=== PATIENT | female | born 1975 | race Caucasian/White ===

== ENCOUNTER 2018-02-07 18:43 | Inpatient (IN) | payer BC, OTHER ==
[~2018-02-07] VITALS: Ht 170.2 cm; Wt 63.5 kg
--- NOTE | 2018-02-07 20:45 | NUR ---
PRE-ADMISSION NOTE: Pre-assessment done for 43 year old female in intake. Patient presented for Alcohol withdrawal. Patient reports, " Last time I drunk 2 1/2 White Wine bottles and 50 ml of Tequila at 1700". Patient reports NKA, and denies Seizures History. Patient denies history withdrawal induced cardiac complications r/t alcohol withdrawal . Patient is alert and oriented x4, with steady gait, and with clear soft speech, smelling of alcohol. Patient appears sad, worried, with anxious mood and flat affect. Patient noted disheveled, unshaven, unkempt, with uncombed hair. Patient is intoxicated. Patient does not experienced withdrawal symptoms. VS: T:97.4, BP:112/75, HR:79, RA O2SAT: 98%, RR: 18. Pain level:"0/10". Respirations unlabored and even. Patient denies SOB and chest pain. Patient educated on admission process. Will continue the admission when patient coming on the unit.
[2018-02-07 21:06] VITALS: BP 112/75
--- NOTE | 2018-02-07 21:06 | NUR ---
ADMISSION NOTE: The patient is a 43 year old female admitted to [facility] on 02/07/2018 at 2106 for medically supervised from Alcohol withdrawal. Pre-assessment completed in intake. Patient is alert and oriented x4, with steady gait, and with clear soft speech, smelling of alcohol. The patient is cooperative and verbally appropriate. Patient appears sad, worried, with anxious mood and flat affect. Patient noted disheveled, , unkempt, with uncombed hair. Patient is intoxicated. Patient does not experienced withdrawal symptoms. Patient reports NKA, Regular diet, is on Full Code, Fall and Seizures Precautions. Patient denies a history of seizures, and history of suicidal ideations. Patient denies history withdrawal induced cardiac complications r/t alcohol withdrawal.Patient is poor historian. VS: T:97.4, BP:112/75, HR:79, RA O2SAT: 98%, RR: 18. Pain level:"0/10". Ht: 67 in, Wt:140 lbs y standing scale. Patient provided Blood labs, UDS, and tests at this time. Patient denies Past Medical History. PCP: Dari Melgoza MD.. Psychiatrist : Elina Wei MD . Patient reports the following substance use: 1. White Wine PO: Every day since 1991 . "First time started drinking 17 year old in college with my friends. Last year I using Alcohol (White Wine) PO every day: 3 bottles (750ml each). Last time I used 2 and 1/2 bottles of White Wine on 02/07/2018 at 1700". 2. Tequila PO occasionally during last year. Last time I used 50 ml of Tequila on 02/07/2018 at 1700". The patient reports, "I am 3-rd time in detox now: first treatment was with private outcomes specialist, then I was in [facility] : 20 days in 2016" . Then I was sober. Patient reports, "My longest period of sobriety was 1year: [id number]. Last year I Am using alcohol every day". The patient reports, "I was relapsed for not feelings pains, started shaking, and body aches. I relapsed because I was craving, and scared for my withdrawal symptoms. If I am not using alcohol I am experienced agitation,depression,irritability,nervousness,headache,tremors,palpitations,sweating,tremors , stomach cramps, nausea, vomiting, generalized body aches, myalgia, restlessness, and fatigue". The patient reports, " I get my endorphins from [employer] and surfing and running marathons. I want to change my life by receiving endorphins from natural highs vs alcohol". Patient would like to continue to residential treatment after detox. The patient reports, "I have been never smoking ". Writing smoking cessation education provided. Patient verbalized understanding. Upon initial assessment, patient respirations are even and unlabored. She denies SOB and chest pain. Lungs Sounds are clear bilaterally. Bowel Sounds active in all four quadrants, abdomen is soft and non-tender. PERRLA. Brisk capillary refill, extrusion former equal and strong. Skin search done: Skin is intake, dry and warm to touch. The patient poor historian, brought Home Medications. Reconciliation done. The patient oriented to her Room, Nurse Call Light, and Serenity Floor. Encourage to attend group activities. Admission orders noted and cared out. Patient oriented to unit and educated about plan of care including detox, such us group activities therapy, individual therapy, and discharge planning. Encouraged patient to verbalizing feelings. Encouraged to fluids intake as tolerated. All needs met. Safety measures: Call light within reach, bed locked in lowest position, padded bed rails up x2. Endorsed by outgoing day shift nurse. Will continue to monitor closely. Addendum: 02/08/18 at 0702 by KATIA JEREZ RN 1. White Wine PO: Starting drinking since 1991 .
[2018-02-07] MEDS ORDERED: ONDANSETRON 4 MG/2 ML VIAL IM PRN (21:30)
[2018-02-07] MEDS ORDERED: LOPERAMIDE HCL 2 MG CAPSULE PO PRN ×2 (21:30)
[2018-02-07] MEDS ORDERED: DIAZEPAM 5 MG TABLET PO PRN (21:30)
[2018-02-07] MEDS ORDERED: THIAMINE HCL 200 MG/2 ML VIAL IM ONE (21:30)
[2018-02-07] MEDS ORDERED: DICYCLOMINE HCL 20 MG TABLET PO PRN (21:30)
[2018-02-07] MEDS ORDERED: MAG HYDROX/AL HYDROX/SIMETH 30 ML LIQUID UDC PO PRN (21:30)
[2018-02-07] MEDS ORDERED: LORAZEPAM 2 MG/1 ML VIAL IM PRN (21:30)
[2018-02-07] MEDS ORDERED: diphenhydrAMINE 50 MG CAPSULE PO PRN (21:30)
[2018-02-07] MEDS ORDERED: DIAZEPAM 10 MG TABLET PO PRN (21:30)
[2018-02-07] MEDS ORDERED: MIRALAX 17 GM POWD.PACK PO PRN (21:30)
[2018-02-07] MEDS ORDERED: MAGNESIUM HYDROXIDE 30 ML LIQUID UDC PO PRN (21:30)
[2018-02-07 21:42] LABS: BASOPHILS # (AUTO) 0.1 K/uL (0.0-8.0); BASOPHILS % (AUTO) 1.4 % (0.0-2.0); EOSINOPHILS # (AUTO) 0.1 K/uL (0.0-0.7); EOSINOPHILS % (AUTO) 1.2 % (0.0-7.0); HEMATOCRIT 41.1 % (31.2-41.9); HEMOGLOBIN 14.1 g/dL (10.9-14.3); LYMPHOCYTES # (AUTO) 2.1 K/uL (20.0-40.0); LYMPHOCYTES % (AUTO) 32.5 % (20.5-51.5); MEAN CORPUSCULAR HEMOGLOBIN 35.5 uug (24.7-32.8); MEAN CORPUSCULAR HGB CONC 34 g/dL (32.3-35.6); MEAN CORPUSCULAR VOLUME 103.2 fL (75.5-95.3); MONOCYTES # (AUTO) 0.3 K/uL (2.0-10.0); MONOCYTES % (AUTO) 4.1 % (0.0-11.0); NEUTROPHILS % (AUTO) 60.8 % (38.5-71.5); PLATELET COUNT (AUTO) 285 K/uL (179-408); RED BLOOD CELL COUNT(AUTO) 3.98 MIL/uL (3.63-4.92); WHITE BLOOD COUNT (AUTO) 6.5 K/uL (3.8-11.8)
[2018-02-07 21:49] LABS: *URINE HCG, QUAL NEGATIVE (NEGATIVE)
[2018-02-07 21:59] LABS: *AMPHETAMINE, URINE NEGATIVE (NEGATIVE); *BARBITURATE, URINE NEGATIVE (NEGATIVE); *CANNABINOID, URINE NEGATIVE (NEGATIVE); *COCCAINE, URINE NEGATIVE (NEGATIVE); *OPIATE, URINE NEGATIVE (NEGATIVE); *PHENCYCLIDINE SCREEN,URINE NEGATIVE (NEGATIVE)
[2018-02-07 22:03] LABS: BILIRUBIN,TOTAL 0.6 mg/dL (0.2-1.0); CREATININE 0.8 mg/dL (0.6-1.3); MAGNESIUM 1.9 mg/dL (1.8-2.4); POTASSIUM 4.1 mmol/L (3.5-5.1); TOTAL PROTEIN, SERUM 7.8 g/dL (6.4-8.2)
[2018-02-07 22:23] LABS: THYROID STIMULATING HORMONE 1.36 mIU/mL (0.358-3.740)
[2018-02-07] MEDS ORDERED: ONDA4TAB11 PO (23:05)
[2018-02-07] MEDS ORDERED: GABA600T2 PO (23:05)
[2018-02-07] MEDS ORDERED: RANI150T43 PO (23:08)
[2018-02-07] MEDS ORDERED: OMEP20TA5 PO (23:08)
[2018-02-07] MEDS: DIAZEPAM 10 MG TABLET PO PRN (23:18)
--- NOTE | 2018-02-07 23:18 | NUR ---
PRN VALIUM 10 MG PO AND PRN BENADRYL 50 MG PO ADMINISTRATION. PRN Valium 10 mg PO administrated for CIWA=12 at 2318, PRN Benadryl administrated for insomnia at 2318. Patient tolerated well. Encouraged to intake fluids as tolerated. All needs met. Safety measures: Call light within reach, bed locked in lowest position, padded bed rails up x2. Will continue to monitor closely.
[2018-02-07] MEDS ORDERED: DOXY100C2 PO (23:32)
[2018-02-07] MEDS ORDERED: FLUO40CA49 PO (23:32)
[2018-02-07] MEDS ORDERED: DIME25TA2 PO (23:32)
[2018-02-07] MEDS ORDERED: AMOX250C PO (23:32)
[2018-02-07] MEDS ORDERED: NITR50CA PO (23:32)
[2018-02-07] MEDS ORDERED: [UNRECOGNIZED DRUG - OTHER] (23:32)
[2018-02-07] MEDS ORDERED: TOPI50TA24 PO (23:32)
[2018-02-07] MEDS ORDERED: NALT50TA PO (23:32)
[2018-02-07] MEDS ORDERED: LEVO25TA2 PO (23:32)
[2018-02-08] VITALS: BP 113/67
--- NOTE | 2018-02-08 | NUR ---
CIWA ASSESSMENT CIWA=12 at 0000. Patient experienced moderate withdrawal symptoms such as anxiety, agitation, irritability, nervousness, sweating, bilateral tremors, and restlessness. PRN Valium 10 mg administrated as ordered for CIWA=12. Safe and calm environment provided. Encouraged to intake fluids as tolerated. All needs met. Safety measures: Call light within reach, bed locked in lowest position, padded bed rails up x2. Will continue to monitor closely.
--- NOTE | 2018-02-08 00:18 | NUR ---
PRN RE-ASSESSMENT The patient sleeping. Respirations are even and unlabored. RR:16. PRN Valium 10 mg PO administrated for CIWA=12 at 2318, PRN Benadryl administrated for insomnia at 2318 were effective. Safe and calm environment provided. Encouraged to intake fluids as tolerated. All needs met. Safety measures: Call light within reach, bed locked in lowest position, padded bed rails up x2. Will continue to monitor closely.
[2018-02-08] MEDS ORDERED: NEOM28.38 TP (02:53)
[2018-02-08] MEDS ORDERED: ESZO3TAB27 PO (02:53)
[2018-02-08] MEDS ORDERED: NAPR220T66 PO (02:53)
[2018-02-08] MEDS ORDERED: BISA10SU61 RC (02:53)
[2018-02-08 04:00] VITALS: BP 105/77
--- NOTE | 2018-02-08 04:00 | NUR ---
CIWA ASSESSMENT CIWA=14at 0400. Patient c/o shaking, increased anxiety, agitation, irritability, nervousness, sweating. Patient noted with bilateral tremors, flashed face, and restlessness. PRN Valium 10 mg PO for CIWA=14 will be administrated as ordered. Safe and calm environment provided. All needs met. Safety measures: Call light within reach, bed locked in lowest position, padded bed rails up x2. Will continue to monitor closely.
[2018-02-08] MEDS: DIAZEPAM 10 MG TABLET PO PRN (04:10)
--- NOTE | 2018-02-08 04:10 | NUR ---
PRN VALIUM 10 MG PO ADMINISTRATION. PRN Valium 10 mg PO administrated for CIWA=14 at 0410. Patient tolerated well. Encouraged to intake fluids as tolerated. Safe and calm environment provided. Encouraged to intake fluids as tolerated. All needs met. Safety measures: Call light within reach, bed locked in lowest position, padded bed rails up x2. Will continue to monitor closely.
--- NOTE | 2018-02-08 05:10 | NUR ---
PRN RE-ASSESSMENT The patient sleeping. Respirations are even and unlabored. RR:16. PRN Valium 10 mg PO administrated for CIWA=14 at 0410 was effective. Safe and calm environment provided. Encouraged to intake fluids as tolerated. All needs met. Safety measures: Call light within reach, bed locked in lowest position, padded bed rails up x2. Will continue to monitor closely.
--- NOTE | 2018-02-08 07:12 | NUR ---
END OF SHIFT NOTE: The patient is a 43 year old female admitted to [facility] on 02/07/2018 at 2106 for medically supervised from Alcohol withdrawal. Patient is alert and oriented x4, with steady gait, and with clear soft speech, smelling of alcohol. The patient is cooperative and verbally appropriate. Patient appears sad, worried, with anxious mood and flat affect. Patient noted disheveled, , unkempt, with uncombed hair. Patient reports NKA, Regular diet, is on Full Code, Fall and Seizures Precautions. Patient denies a history of suicidal ideations. Patient denies history withdrawal induced cardiac complications r/t alcohol withdrawal. Patient denies SI/HI. Patient denies PMH. CIWA=12 at 0000, CIWA= 14 at 0400. During my shift patient experienced mild withdrawal symptoms such as anxiety, agitation, irritability, nervousness, sweating, bilateral tremors, and restlessness. PRN Valium 10 mg PO administrated for CIWA=12 at 2318, PRN Benadryl administrated for insomnia at 2318, PRN Valium 10 mg PO administrated for CIWA=14 at 0410, and were effective. Patient remains compliant with treatment, medications, and diet regimen. Patient slept for 6 hours, intake 1,582 ml, output: voided x3. Safe and calm environment provided. Encouraged to intake fluids as tolerated. All needs met. Safety measures: Call light within reach, bed locked in lowest position, padded bed rails up x2. Endorsed to day shift nurse.
[2018-02-08] MEDS: HYDROXYZINE PAMOATE 25 MG CAPSULE PO PRN (07:42)
[2018-02-08] MEDS: ONDANSETRON ODT 4 MG TAB.RAPDIS SL PRN ×2 (07:42→14:20)
[2018-02-08] MEDS: CLONIDINE HCL 0.1 MG TABLET PO PRN (07:42)
--- NOTE | 2018-02-08 07:42 | NUR ---
START OF SHIFT & PRN Zofran 4mg SL, Clonidine 0.1mg PO, Vistaril 25mg PO. Endorse rcvd from ongoing nurse, client in the room, she is a/o to name, place and situation, client presents with depressed mood, flat affect, flushed face skin, clammy skin, and difficulty concentrating. Client reports nausea, stomach cramps, anxiety, agitation, fatigue, and restless legs. Above medications administered for nausea, agitation and anxiety. Last CIWA 14 @ 0400. PRN Valium 10mg x 2 @ 2318 & 0410, Benadryl 50mg for inability to sleep, client slept 4hrs. Seizure precautions in place. Encourage client to attend group therapy to learn skills to maintain sober. Call light within reach.
--- NOTE | 2018-02-08 08:12 | NUR ---
Reassess PRN Zofran 4mg SL, client reports slight relief from nausea, no emesis. Saltine crackers and maria elena tenisha. Call light within reach.
[2018-02-08] MEDS: DIAZEPAM 10 MG TABLET PO SCH ×4 (08:25→20:06)
[2018-02-08] MEDS: MULTIVITAMINS,THERAPEUTIC TABLET PO SCH (08:25)
[2018-02-08] MEDS: THIAMINE HCL 100 MG TABLET PO SCH (08:25)
[2018-02-08] MEDS: FOLIC ACID 1 MG TABLET PO SCH (08:25)
[2018-02-08 08:33] VITALS: BP 112/80
--- NOTE | 2018-02-08 08:42 | NUR ---
Reassess PRN Clonidine 0.1mg, Vistaril 25mg, client reports slight relief from anxiety, she appears less agitated. Call light within reach.
[2018-02-08] MEDS ORDERED: TUBERCULIN,PURIF.PROT.DERIV. 5 TU/0.1 ML TEST ID ONE (09:00)
[2018-02-08] MEDS ORDERED: 5 DAY TAPER VALIUM-SERENITY PROTOCOL PO PRN (09:00)
[2018-02-08 12:50] VITALS: BP 122/75
[2018-02-08] MEDS: ACETAMINOPHEN 325 MG TABLET PO PRN (12:52)
[2018-02-08] MEDS: IBUPROFEN 600 MG TABLET PO PRN (12:52)
--- NOTE | 2018-02-08 12:52 | NUR ---
CIWA 23 & PRN Tylenol 650mg PO, Motrin 600mg PO for ZAVALA 8/10. Client continues to present with gross tremors, anxiety, restlessness, pins and needle feeling in both legs, ZAVALA 8/10, anhedonia, difficulty concentrating, malaise, fatigue, chills, hot flashes, flushed face, sweats, agitation, nausea, poor appetite, difficulty concentrating. Scheduled Valium 10mg PO. Offered chicken soup, saltines, and maria elena tenisha. Call light within reach.
[2018-02-08] MEDS: TOPIRAMATE 25 MG TABLET PO SCH ×2 (13:12→20:06)
[2018-02-08] MEDS: FLUOXETINE HCL 20 MG CAPSULE PO SCH (13:12)
--- NOTE | 2018-02-08 13:41 | NUR ---
Therapist prompted client to attend twice daily group therapy sessions.
--- NOTE | 2018-02-08 13:52 | NUR ---
Reassess PRN Tylenol 650mg, Motrin 600mg, client reports relief from ZAVALA 2/10, but tolerable.
[2018-02-08] MEDS: LEVOTHYROXINE SODIUM 25 MCG TABLET PO SCH (14:19)
[2018-02-08] MEDS: ZANTAC 150 MG PO SCH (14:19)
[2018-02-08] MEDS: GABAPENTIN 300 MG CAPSULE PO SCH ×2 (14:19→16:40)
--- NOTE | 2018-02-08 14:20 | NUR ---
PRN Zofran 4mg SL for nausea, no emesis. Call light within reach.
--- NOTE | 2018-02-08 14:50 | NUR ---
Reassess PRN Zofran 4mg SL, client reports slight relief from nausea, no emesis.
[2018-02-08 16:35] VITALS: BP 118/84
--- NOTE | 2018-02-08 16:40 | NUR ---
WA 18 Client continues to present with gross tremors, anxiety, restlessness, pins and needle feeling in both legs, anhedonia, difficulty concentrating, malaise, fatigue, chills, hot flashes, clammy skin, agitation, nausea, and poor appetite. Scheduled Valium 10mg PO, Gabapentin 300mg PO administered. Call light within reach.
--- NOTE | 2018-02-08 19:26 | NUR ---
END OF SHIFT Endorse client to incoming nurse, client is in room, she is a/o x 4. Client monitored closely during shift, continues on Valium taper as ordered. During shift client presented with nausea, anxiety, agitation, stomach cramps, difficulty concentrating, avoidant gaze, flushed face and fatigue. PRN medications aministered and noted per protocol. Last CIWA 18 @ 1635. Adequate PO fluid intake 2800mL, void x 5. Consumes 25-50% of meals. Call light within reach.
--- NOTE | 2018-02-08 19:27 | NUR ---
Start of shift note Received report from day shift nurse. Pt is a 43 yo female, A+Ox4, presenting to [facility] for medically supervised ETOH withdrawal. Pt noted with restlessness, agitation, and anxiety. Pt has HX of anxiety, and depression which will be monitored during shift. Pt is on 5 day Valium taper, tolerated well. Respirations even and unlabored. Will continue to monitor.
[2018-02-08 20:11] VITALS: BP 115/84
--- NOTE | 2018-02-08 20:11 | NUR ---
CIWA Assessment CIWA: 11. Pt noted with fine tremors, sweat on brow, anxiety, agitation, and itchiness. Respirations even and unlabored. Will continue to monitor.
[2018-02-08] MEDS: TRAZODONE 50 MG TABLET PO PRN (22:59)
--- NOTE | 2018-02-08 22:59 | NUR ---
PRN Trazodone Pt c/o inability to sleep and requested for PRN Trazodone. Medication given and tolerated well. Will reassess within 1 HR. Will continue to monitor.
--- NOTE | 2018-02-08 23:48 | NUR ---
PRN Trazodone Reassessment Medication effective. Pt is resting well in bed. No s/s of ASE noted at this time. Respirations even and unlabored. Will continue to monitor.
--- NOTE | 2018-02-09 00:16 | NUR ---
V/S refused and CIWA deferred for sleep. Respirations even and unlabored. Will continue to monitor.
--- NOTE | 2018-02-09 04:55 | NUR ---
V/S refused and CIWA deferred for sleep. Respirations even and unlabored. Will continue to monitor.
[2018-02-09 06:44] LABS: BILIRUBIN,TOTAL 1.2 mg/dL (0.2-1.0); CREATININE 0.9 mg/dL (0.6-1.3); POTASSIUM 4.1 mmol/L (3.5-5.1); TOTAL PROTEIN, SERUM 6.8 g/dL (6.4-8.2)
--- NOTE | 2018-02-09 07:00 | NUR ---
End of shift note Pt was continuously noted with restlessness, agitation, and anxiety. Pt remained in room for majority of shift except to get food from kitchen and to go smoke on smoking patio. Pt remained cooperative and compliant with all aspects of treatment. Pt was given PRN Toradol and Trazodone @2118. Pt continues on PRN medications, tolerated well. Pt slept for a total of 10 HRS. Last COWS: 8 and Last CIWA: 8 @2009. Respirations even and unlabored. Will endorse to day shift nurse.
[2018-02-09] MEDS: PANTOPRAZOLE SODIUM 40 MG TABLET.DR PO SCH (07:07)
[2018-02-09] MEDS: LEVOTHYROXINE SODIUM 25 MCG TABLET PO SCH (07:07)
--- NOTE | 2018-02-09 07:30 | NUR ---
Start of shift Last CIWA 11 at 1999. Pt on 5 day Valium taper. Pt presents with moderate anxiety, gross tremors, nausea, sensitivity to light, chills, sweats, anhedonia, dysphoria, and depressed mood .Pt slept 10 hours last night. Encouraged Pt to participate in group activities, socialize with others and identify positive coping skills to maintain sobriety. Seizure and Fall precautions and all safety measures in place. Side rails up x2. Call light functioning and within reach. All needs attended and met. Will continue to assess for withdrawal symptoms.
[2018-02-09 08:00] VITALS: BP 104/68
--- NOTE | 2018-02-09 08:00 | NUR ---
CIWA 18- Pt presents with flushed face, nausea, moderate anxiety, light sensitivity, gross tremors, chills, and sweats. Will administer PRN medication as order for withdrawal and continue Valium taper.
[2018-02-09 08:10] LABS: HEPATITIS B SURFACE AG Negative (Negative)
[2018-02-09] MEDS: MULTIVITAMINS,THERAPEUTIC TABLET PO SCH (08:25)
[2018-02-09] MEDS: THIAMINE HCL 100 MG TABLET PO SCH (08:25)
[2018-02-09] MEDS: GABAPENTIN 300 MG CAPSULE PO SCH ×3 (08:25→16:47)
[2018-02-09] MEDS: TOPIRAMATE 25 MG TABLET PO SCH ×2 (08:25→20:50)
[2018-02-09] MEDS: FOLIC ACID 1 MG TABLET PO SCH (08:25)
[2018-02-09] MEDS: HYDROXYZINE PAMOATE 25 MG CAPSULE PO PRN (08:25)
[2018-02-09] MEDS: ONDANSETRON ODT 4 MG TAB.RAPDIS SL PRN (08:25)
[2018-02-09] MEDS: FLUOXETINE HCL 20 MG CAPSULE PO SCH (08:26)
[2018-02-09] MEDS: DIAZEPAM 10 MG TABLET PO SCH ×3 (08:26→20:49)
--- NOTE | 2018-02-09 08:30 | NUR ---
PRN Zofran 4 mg sl for nausea, no emesis. PRN Vistaril 25 mg po for moderate anxiety
--- NOTE | 2018-02-09 09:30 | NUR ---
Reassess Zofran- Pt reports nausea improved but still remains slightly. Reassess Vistaril- Pt reports anxiety improved. Medication effective.
[2018-02-09] MEDS: ZANTAC 150 MG PO SCH (09:39)
[2018-02-09 12:00] VITALS: BP 128/84
--- NOTE | 2018-02-09 12:18 | NUR ---
WA 17- Withdrawal symptoms include, fatigue, flushed face, moderate anxiety, gross tremors, chills/sweats, nausea, light sensitivity, decreased appetite, depression, difficulty concentrating and generalized discomfort.
[2018-02-09] MEDS: CLONIDINE HCL 0.1 MG TABLET PO PRN ×2 (13:11→20:49)
--- NOTE | 2018-02-09 13:12 | NUR ---
PRN Clonidine 0.1mg po for moderate anxiety
--- NOTE | 2018-02-09 14:13 | NUR ---
Reassess Clonidine- Pt reports her anxiety has improved. Will continue to assess withdrawal symptoms and administer taper and PRN's as ordered.
[2018-02-09 16:00] VITALS: BP 107/80
--- NOTE | 2018-02-09 16:15 | NUR ---
WA 17- Withdrawal symptoms include moderate anxiety, gross tremors, chills/sweats, nausea, light sensitivity, fatigue, flushed face, poor appetite, depression, difficulty concentrating and generalized discomfort. Administer taper and PRN medications as ordered.
--- NOTE | 2018-02-09 18:39 | NUR ---
End of shift Last CIWA 17 at 1600. Pt on 5 day Valium taper. Withdrawal symptoms today include moderate anxiety, gross tremors, flushed face, fatigue, nausea, sensitivity to light, chills, sweats, anhedonia, dysphoria, and depressed mood . PRNs given today were Zofran, Clonidine and Vistaril. Pt was able to perform ADLs and shower this afternoon. Encouraged Pt to participate in group activities, socialize with others and identify positive coping skills to maintain sobriety. PO fluids 2572 ml, voids x 5, no BM. Seizure and Fall precautions and all safety measures in place. Side rails up x2. Call light functioning and within reach. All needs attended and met. Will continue to assess for withdrawal symptoms. Endorsed to PM shift.
--- NOTE | 2018-02-09 19:47 | NUR ---
START OF SHIFT NOTE Rcvd report form outgoing nurse. Pt is a 44 y/o female A/O to person, place, time, and purpose. Pt was admitted for medically supervised withdrawal from ETOH. Pt has been presenting w/ anxiety, sweats, tremors, nausea w/ no emesis, and depressed mood. Pt has been c/o agitation and chills. PRN Zofran, Vistaril, and Clonidine were given and noted effective by outgoing nurse. Last CIWA 17 @ 1600. Call light is within reach. Pt will continue to be monitored and needs met.
[2018-02-09 20:11] VITALS: BP 103/71
--- NOTE | 2018-02-09 20:14 | NUR ---
CIWA ASSESSMENT CIWA 17. Pt has been presenting w/ anxiety, sweats, tremors, nausea w/ no emesis, and depressed mood. Pt has been c/o agitation and chills.V/S:T:98.3, P:82, RR:16, SPO2:95, BP:103/71.
[2018-02-09] MEDS: diphenhydrAMINE 50 MG CAPSULE PO PRN (20:48)
--- NOTE | 2018-02-09 20:48 | NUR ---
PRN BENADRYL AND CLONIDINE ADMINISTRATION Benadryl 50mg and Clonidine 0.1mg given for anxiety and insomnia. CIWA 17. Will reassess pt in 1 hr.
--- NOTE | 2018-02-09 21:48 | NUR ---
PRN BENADRYL AND CLONIDINE REASSESSMENT Pt states relief from anxiety and feels they have the ability to fall asleep. Will continue to monitor pt.
--- NOTE | 2018-02-10 00:08 | NUR ---
CIWA DEFERRED. V/S REFUSED. Pt is in bed w/ her eyes closed. Pt's respirations are unlabored and even.
--- NOTE | 2018-02-10 04:06 | NUR ---
CIWA DEFERRED. V/S REFUSED Pt is in bed w/ her eyes closed. Pt's respirations are unlabored and even.
[2018-02-10] MEDS: LEVOTHYROXINE SODIUM 25 MCG TABLET PO SCH (06:45)
[2018-02-10] MEDS: PANTOPRAZOLE SODIUM 40 MG TABLET.DR PO SCH (06:45)
--- NOTE | 2018-02-10 07:07 | NUR ---
END OF SHIFT NOTE Endorsed pt to oncoming nurse. Pt is a 44 y/o female A/O to person, place, time, and purpose. Pt was admitted for medically supervised withdrawal from ETOH. Pt has been presenting w/ anxiety, sweats, tremors, nausea w/ no emesis, and depressed mood. Pt has been c/o agitation and chills. PRN Benadryl 50mg and Clonidine 0.1mg were given for sleep, anxiety, sweats, chills, and agitation, noted effective. Pts fluid intake was 1750ml and she slept for 8hrs. Last CIWA 17 @ 1999. Call light is within reach.
--- NOTE | 2018-02-10 07:50 | NUR ---
Start of shift Last CIWA 17 at 1999. Pt on 5 day Valium taper. Withdrawal symptoms today include moderate anxiety, gross tremors, flushed face, fatigue, nausea, sensitivity to light, chills, sweats, anhedonia, dysphoria, and depressed mood . Pt slept 8 hours last night. Encouraged Pt to participate in group activities, socialize with others and identify positive coping skills to maintain sobriety. Seizure and Fall precautions and all safety measures in place. Side rails up x2. Call light functioning and within reach. All needs attended and met. Will continue to assess for withdrawal symptoms.
[2018-02-10 08:00] VITALS: BP 98/61
--- NOTE | 2018-02-10 08:12 | NUR ---
[facility] 12-Withdrawal symptoms include moderate anxiety, bilateral hand tremors, flushed face, fatigue, sensitivity to light, chills, sweats, anhedonia, dysphoria, flat affect and depressed mood. Will continue Valium taper and PRN medications as ordered.
[2018-02-10] MEDS: TOPIRAMATE 25 MG TABLET PO SCH ×2 (08:37→21:12)
[2018-02-10] MEDS: MULTIVITAMINS,THERAPEUTIC TABLET PO SCH (08:37)
[2018-02-10] MEDS: FLUOXETINE HCL 20 MG CAPSULE PO SCH (08:37)
[2018-02-10] MEDS: DIAZEPAM 5 MG TABLET PO SCH ×4 (08:37→21:12)
[2018-02-10] MEDS: GABAPENTIN 300 MG CAPSULE PO SCH ×3 (08:37→16:41)
[2018-02-10] MEDS: THIAMINE HCL 100 MG TABLET PO SCH (08:37)
[2018-02-10] MEDS: FOLIC ACID 1 MG TABLET PO SCH (08:37)
[2018-02-10] MEDS: ZANTAC 150 MG PO SCH (08:52)
--- NOTE | 2018-02-10 08:55 | NUR ---
PRN Miralax PO in juice for constipation. No BM in a few days.
[2018-02-10 12:00] VITALS: BP 107/73
--- NOTE | 2018-02-10 12:05 | NUR ---
[facility] 12-Withdrawal symptoms include bilateral hand tremors, flushed face, fatigue, anxiety, chills, sweats, anhedonia, dysphoria, flat affect and depressed mood. Will continue Valium taper and PRN medications as ordered.
--- NOTE | 2018-02-10 13:41 | NUR ---
Behavioral Note- Pt tearful and crying. She wants to go home tomorrow and disappointed her discharge day scheduled for . Pt c/o she is bored. Encouraged her to attend group therapy sessions, ID + coping skills, and go out to patio. Pt verbalized understanding of detox regimen. Will administer Valium taper as ordered and support patient's emotional needs.
[2018-02-10 17:00] VITALS: BP 110/77
--- NOTE | 2018-02-10 18:36 | NUR ---
End of shift Last CIWA 12 at 1600. Pt on 5 day Valium taper. Withdrawal symptoms today include very emotional, tearful, moderate anxiety, bilateral hand tremors, flushed face, malaise, generalized discomfort, chills, sweats, anhedonia, dysphoria, flat affect and depressed mood. Pt has poor appetite today. PRN given today; Miralax. Encouraged Pt to participate in group activities, socialize with others and identify positive coping skills to maintain sobriety. Pt did participate in both group therapy sessions today. PO fluids 2500 ml, voids x7, no BM. Seizure and Fall precautions and all safety measures in place. Side rails up x2. Call light functioning and within reach. All needs attended and met. Will continue to assess for withdrawal symptoms. Endorsed to PM shift.
--- NOTE | 2018-02-10 19:43 | NUR ---
START OF SHIFT NOTE Rcvd report from outgoing nurse. Pt is a 43 y/o female A/O to person, place, time, and purpose. Pt was admitted for medically supervised withdrawal from ETOH. Pt has been presenting w/ anxiety, depressed mood, flat affect, labile emotional state, tremors, sweats, and chills. PRN Miralax was given and noted ineffective by outgoing nurse. Last CIWA 12 @ 1600. Call light is within reach. Pt will be monitored and needs met.
[2018-02-10 20:26] VITALS: BP 101/73
--- NOTE | 2018-02-10 20:27 | NUR ---
CIWA ASSESSMENT CIWA 12. Pt has been presenting w/ anxiety, depressed mood, flat affect, labile emotional state, tremors, sweats, and chills. V/S: T:97.9, P:78, RR:14, SPO2:100, BP:101/73.
[2018-02-10] MEDS: diphenhydrAMINE 50 MG CAPSULE PO PRN (23:45)
--- NOTE | 2018-02-10 23:45 | NUR ---
PRN BENADRYL AND CLONIDINE ADMINISTRATION Benadryl 50mg and Clondine 0.1mg given for anxiety, sweats, and chills. CIWA 12. Pt states they are having difficulty falling and staying sleep. Will reassess pt in 1hr.
[2018-02-10] MEDS: CLONIDINE HCL 0.1 MG TABLET PO PRN (23:46)
[2018-02-11 00:05] VITALS: BP 106/74
--- NOTE | 2018-02-11 00:05 | NUR ---
CIWA ASSESSMENT CIWA 12. Pt has been presenting w/ anxiety, depressed mood, flat affect, labile emotional state, tremors, sweats, and chills. V/S: T:97.9, P:77, RR:16, SPO2:100, BP:106/74.
--- NOTE | 2018-02-11 00:45 | NUR ---
PRN BENADRYL AND CLONIDINE REASSESSMENT Pt is in bed w/ her eyes closed. Pt's respirations are unlabored and even.
[2018-02-11] MEDS: PANTOPRAZOLE SODIUM 40 MG TABLET.DR PO SCH (06:53)
--- NOTE | 2018-02-11 07:04 | NUR ---
END OF SHIFT NOTE Rcvd report from outgoing nurse. Pt is a 43 y/o female A/O to person, place, time, and purpose. Pt was admitted for medically supervised withdrawal from ETOH. Pt has been presenting w/ anxiety, depressed mood, flat affect, labile emotional state, tremors, sweats, and chills. PRN Benadryl and Clonidine were given for anxiety and insomnia, noted effective. Pt denies S/I or H/I. Pts fluid intake was 4900ml and she slept for 6hrs. Last CIWA 12 @ 0000. Call light is within reach.
--- NOTE | 2018-02-11 07:35 | NUR ---
START OF SHIFT Pt is 43 yr old female, AA&Ox4. Pt was admitted on 02/07/18 for ETOH withdrawal and is on 5 day Valium taper as ordered. Received report from tube bending machine operator nurse. Pt received Miralax PRN, Benadryl PRN and Clonidine PRN. Medication was effective. Pt slept for 6 hrs. Last CIWA score was 12. Pt is currently in bed resting with respirations even and unlabored. Pt states, "I feel sleepy". Pt is observed with flushed skin, clammy skin and fine tremors on BUE. Pt is on fall and seizure precautions. call light is within reach. Will continue to monitor.
[2018-02-11 07:40] LABS: BILIRUBIN,DIRECT 0.3 mg/dL (0.0-0.2); BILIRUBIN,TOTAL 0.6 mg/dL (0.2-1.0); TOTAL PROTEIN, SERUM 6.7 g/dL (6.4-8.2)
[2018-02-11] MEDS: LEVOTHYROXINE SODIUM 25 MCG TABLET PO SCH (07:54)
[2018-02-11 08:00] VITALS: BP 90/53
[2018-02-11] MEDS: FOLIC ACID 1 MG TABLET PO SCH (09:15)
[2018-02-11] MEDS: GABAPENTIN 300 MG CAPSULE PO SCH ×3 (09:15→16:42)
[2018-02-11] MEDS: DIAZEPAM 5 MG TABLET PO SCH ×3 (09:15→21:12)
[2018-02-11] MEDS: FLUOXETINE HCL 20 MG CAPSULE PO SCH (09:15)
[2018-02-11] MEDS: MULTIVITAMINS,THERAPEUTIC TABLET PO SCH (09:15)
[2018-02-11] MEDS: TOPIRAMATE 25 MG TABLET PO SCH ×2 (09:15→21:11)
[2018-02-11] MEDS: ZANTAC 150 MG PO SCH (09:15)
[2018-02-11] MEDS: THIAMINE HCL 100 MG TABLET PO SCH (09:16)
[2018-02-11 12:00] VITALS: BP 105/75
--- NOTE | 2018-02-11 12:00 | NUR ---
CIWA ASSESSMENT Pt is c/o anxiety, chills and sweats. Pt is observed with flushed skin and fine tremors. CIWA score was 8.
--- NOTE | 2018-02-11 12:43 | NUR ---
Therapist prompted client to attend group therapy sessions.
[2018-02-11] MEDS: DOCUSATE SODIUM 100 MG CAPSULE PO SCH ×2 (14:00→21:12)
[2018-02-11 16:00] VITALS: BP 135/82
--- NOTE | 2018-02-11 19:10 | NUR ---
END OF SHIFT Pt is a 43 yr old female, AA&Ox4. Pt was admitted on 02/07/18 for ETOH w/d and is on 5 day Valium taper as ordered. Pt has been cooperative with medication regimen and plan of care. Pt has been observed attending group therapy. Pt c/o increase anxiety, agitation, sweats, chills, constipation and restlessness. Pt was observed with flushed skin and fine tremors on BUE. Pt was offered Miralax PRN and prune juice for constipation but pt refused. No PRNs were given during the day. Last CIWA score 9. Pt was encouraged increase fluid intake for hydration. Safety precautions observed. Call light is within reach. Endorsed to greige goods inspector nurse to continue with care.
--- NOTE | 2018-02-11 19:48 | NUR ---
START OF SHIFT NOTE Rcvd report from outgoing nurse. Pt is a 43 y/o female A/O to person, place, time, and purpose. Pt was admitted for medically supervised withdrawal from ETOH. Pt has been presenting w/ anxiety, depressed mood, emotional lability, flushed face, sweats, chills, and tremors. Pt rcvd no PRN medications during previous shift. Last CIWA 9 @ 1600. Call light is within reach. Pt will continue to be monitored and needs met.
[2018-02-11 20:13] VITALS: BP 100/66
--- NOTE | 2018-02-11 20:15 | NUR ---
CIWA ASSESSMENT CIWA 9. Pt has been presenting w/ anxiety, depressed mood, emotional lability, flushed face, sweats, chills, and tremors V/S: T:98.3, P:83, RR:16, SPO2:98, BP:100/66.
[2018-02-11] MEDS: diphenhydrAMINE 50 MG CAPSULE PO PRN (21:11)
--- NOTE | 2018-02-11 21:11 | NUR ---
PRN CLONIDINE AND BENADRYL ADMINISTRATION Clonidine 0.1mg and Benadryl 50mg given for anxiety and insomnia. Pt c/o racing thoughts and sweats. Will reassess in 1hr.
[2018-02-11] MEDS: CLONIDINE HCL 0.1 MG TABLET PO PRN (21:12)
--- NOTE | 2018-02-11 22:11 | NUR ---
PRN CLONIDINE AND BENADRYL REASSESSMENT Pt is in bed w/ her eyes closed. Pt's respirations are unlabored and even. Will continue to monitor.
--- NOTE | 2018-02-12 00:28 | NUR ---
CIWA DEFERRED. V/S REFUSED Pt is in bed w/ her eyes closed. Pt's respirations are unlabored and even.
--- NOTE | 2018-02-12 04:28 | NUR ---
CIWA DEFERRED. V/S REFUSED Pt is in bed w/ his eyes closed. Pt's respirations are unlabored and even.
[2018-02-12] MEDS: LEVOTHYROXINE SODIUM 25 MCG TABLET PO SCH (06:56)
[2018-02-12] MEDS: PANTOPRAZOLE SODIUM 40 MG TABLET.DR PO SCH (06:56)
--- NOTE | 2018-02-12 07:09 | NUR ---
END OF SHIFT NOTE Endorsed pt to oncoming nurse. Pt is a 43 y/o female A/O to person, place, time, and purpose. Pt was admitted for medically supervised withdrawal from ETOH. Pt has been presenting w/ anxiety, depressed mood, emotional lability, flushed face, sweats, chills, and tremors. Pt denies any S/I or H/I. PRN Clonidine and Benadryl were given and noted effective. Pts fluid intake was 3000ml and she slept for 8hrs. Last CIWA 9 @ 1999. Call light is within reach.
[2018-02-12 08:00] VITALS: BP 98/65
--- NOTE | 2018-02-12 08:00 | NUR ---
START OF SHIFT Pt is 43 yr old female, AA&Ox4. Pt was admitted on 02/07/18 for ETOH withdrawal and is on 5 day Valium taper as ordered. Received report from operations supervisor 2nd shift nurse. Pt received Benadryl PRN and Clonidine PRN. Medication was effective. Pt slept for 8 hrs. Last CIWA score was 9 at 1999. Pt is currently in bed resting with respirations even and unlabored. Pt is c/o feeling anxious but is able to cope with anxiety level. Pt is observed with flushed and clammy skin and fine tremors on BUE. Encouraged increase fluid intake. Pt is on fall and seizure precautions. call light is within reach. Will continue to monitor.
[2018-02-12] MEDS: MULTIVITAMINS,THERAPEUTIC TABLET PO SCH (09:14)
[2018-02-12] MEDS: FLUOXETINE HCL 20 MG CAPSULE PO SCH (09:14)
[2018-02-12] MEDS: DOCUSATE SODIUM 100 MG CAPSULE PO SCH ×2 (09:14→21:43)
[2018-02-12] MEDS: FOLIC ACID 1 MG TABLET PO SCH (09:14)
[2018-02-12] MEDS: DIAZEPAM 5 MG TABLET PO SCH ×2 (09:15→21:43)
[2018-02-12] MEDS: TOPIRAMATE 25 MG TABLET PO SCH ×2 (09:15→21:43)
[2018-02-12] MEDS: GABAPENTIN 300 MG CAPSULE PO SCH ×3 (09:15→17:29)
[2018-02-12] MEDS: THIAMINE HCL 100 MG TABLET PO SCH (09:15)
[2018-02-12] MEDS: ZANTAC 150 MG PO SCH (09:45)
[2018-02-12 12:00] VITALS: BP 112/77
--- NOTE | 2018-02-12 12:00 | NUR ---
CIWA ASSESSMENT Pt is observed with anxiety m/b difficulty staying still. Pt's skin is flushed and clammy to touch. Pt is c/o sweats and lack of appetite. CIWA score was 6. Encourage increase fluid intake, Will continue to monitor.
[2018-02-12] MEDS ORDERED: BISACODYL 5 MG TABLET.DR PO ONE (13:30)
--- NOTE | 2018-02-12 13:53 | NUR ---
MD COMMUNICATION Pt is c/o constipation and states of not having a BM in [address] Jay with new order for Dulcolax 10mg PO x1 and Dulcolax 5mg PO HSPRN. New order was noted and carried out. Pt received Dulcolax 10mg PO x1 and was encouraged increase fluid intake. Will continue to monitor.
[2018-02-12 16:00] VITALS: BP 112/82
--- NOTE | 2018-02-12 19:10 | NUR ---
END OF SHIFT Pt is a 43 yr old female, AA&Ox4. Pt was admitted on 02/07/18 for ETOH w/d and is on 5 day Valium taper as ordered. Pt has been cooperative with medication regimen and plan of care. Pt has been observed attending group therapy. Pt was observed with anxiety, irritability, sweats, chills, constipation and restlessness. Pt was observed with flushed skin and fine tremors on BUE. Dulcolax 10mg PO x1 was given at 1353. Pt denies any BM. Endorsed to tower loader operator nurse to f/u. Last CIWA score 5. Pt was encouraged increase fluid intake for hydration. Safety precautions observed. Call light is within reach.
--- NOTE | 2018-02-12 19:50 | NUR ---
Start of Shift Note Received a 43 y/o female, admitted for medically supervised withdrawal from ETOH. Px was placed on 5 day Valium taper. Px is tolerating it. Last reported CIWA 5 by AM shift nurse. During the rounds at 1950, px is awake sitting on the edge of her bed. Px appears anxious. She is disheveled. Some drinks noted on top of the bed side table. Px stated that her anxiety is 5/10 and she has H/A of 3/10. She has sweats at night and mild bilateral hand tremors. She also complains of 3 days constipation. Bed on the lowest position, side rails up 2x and call light within reach. Well continue to monitor.
[2018-02-12 20:00] VITALS: BP 116/78
--- NOTE | 2018-02-12 20:00 | NUR ---
CIWA 13 On assessment, Px appears anxious. Px stated that her anxiety is 5/10 and she has H/A of 3/10. She has sweats at night and mild bilateral hand tremors. will continue to monitor
[2018-02-12] MEDS: ACETAMINOPHEN 325 MG TABLET PO PRN (21:43)
--- NOTE | 2018-02-12 21:43 | NUR ---
PRN Tylenol Px received Tylenol 650 mg PO for H/A of 08/18.
[2018-02-12] MEDS: TRAZODONE 50 MG TABLET PO PRN (21:55)
--- NOTE | 2018-02-12 21:55 | NUR ---
PRN Trazodone Px received Trazodone 50 mg PO for insomnia.
--- NOTE | 2018-02-12 22:45 | NUR ---
[facility] 11 reassessment On assessment, Px appears anxious. Px stated that her anxiety is 5/10 and she has H/A of 0/10 after Tylenol 650 mg PO was given an hour ago. She has sweats at night and mild bilateral hand tremors. will continue to monitor
--- NOTE | 2018-02-12 22:45 | NUR ---
Reassessment of H/A Px stated that her H/A is gone.
--- NOTE | 2018-02-12 23:00 | NUR ---
Reassessment of insomnia Px is still awake on bed in fowlers position watching TV
[2018-02-12] MEDS: HYDROXYZINE PAMOATE 25 MG CAPSULE PO PRN (23:33)
--- NOTE | 2018-02-12 23:33 | NUR ---
PRN Vistaril Px received Vistaril 25 mg PO for anxiety
[2018-02-13] VITALS: BP 107/72
--- NOTE | 2018-02-13 | NUR ---
CIWA 11 Px is still awake and appears anxious. Px stated that her anxiety is still 5/10. She has sweats at night and mild bilateral hand tremors. will continue to monitor
--- NOTE | 2018-02-13 00:30 | NUR ---
Reassessment of anxiety and insomnia Px is about to sleep at this moment. She stated that her anxiety improved. will continue to monitor
[2018-02-13 04:00] VITALS: BP 100/73
--- NOTE | 2018-02-13 04:00 | NUR ---
CIWA deferred CIWA deferred due to the px is asleep, to assess if the px is awake per doctor's order. will continue to monitor
[2018-02-13] MEDS: PANTOPRAZOLE SODIUM 40 MG TABLET.DR PO SCH (06:55)
[2018-02-13] MEDS: LEVOTHYROXINE SODIUM 25 MCG TABLET PO SCH (06:55)
--- NOTE | 2018-02-13 07:05 | NUR ---
End of Shift Note During the shift at 2143, px received Tylenol 650 mg PO for H/A of 3/10. It was effective. At 2155, px received Trazodone 50 mg PO for insomnia. It was not effective. At 2333, px received Vistaril 25 mg PO for anxiety. Px slept after 0000. Oral intake of 2 L, voided 4x, BM 1x. Px slept for total of 6 hours. Last CIWA 11. At 0630, px is asleep on bed in fowlers position. Bed on the lowest position, side rails up 2x and call light within reach. Well continue to monitor. Px endorsed to AM shift nurse.
--- NOTE | 2018-02-13 07:08 | NUR ---
Start Of Shift Report received from shift mechanic nurse. Pt is a 43 y/o female, admitted for medically supervised withdrawal from ETOH. Per shift mechanic her last CIWA was 11. Pt noted laying in bed with eyes open watching TV. When greeted pt stated "hello how are you today. Pt's room appears unorganized and a bit messy with clothes on the bed and snacks in the bed. Pt appears flushed, tremors and fatigued. During assessment, pt is AOx4. Lung sounds clear bilaterally. Radial pulse is regular and non-bounding. Abdomen soft and non-tender. Pt's skin is warm and intact. Pt denies any pain at the moment. Encouraged pt to drink plenty of fluids to keep hydrated and help the detox process. Pt received PRN Tylenol, Trazodone, and Vistaril medication were effective per shift mechanic nurse. Bed in lowest position. Side rails up x2. Call light functioning and within reach. All needs attended and met. Will continue to monitor.
[2018-02-13 08:00] VITALS: BP 89/60
--- NOTE | 2018-02-13 08:00 | NUR ---
CIWA 10 Pt has diaphoresis, anxiety restless legs and restlessness. Pt complains of chills runny nose and fatigue. Pt encouraged to drink more fluids to help with detox process. Will continue to monitor, support and encourage according to plan of care.
[2018-02-13] MEDS: FOLIC ACID 1 MG TABLET PO SCH (09:38)
[2018-02-13] MEDS: GABAPENTIN 300 MG CAPSULE PO SCH ×3 (09:38→17:19)
[2018-02-13] MEDS: MULTIVITAMINS,THERAPEUTIC TABLET PO SCH (09:38)
[2018-02-13] MEDS: DOCUSATE SODIUM 100 MG CAPSULE PO SCH ×2 (09:38→23:29)
[2018-02-13] MEDS: FLUOXETINE HCL 20 MG CAPSULE PO SCH (09:38)
[2018-02-13] MEDS: THIAMINE HCL 100 MG TABLET PO SCH (09:38)
[2018-02-13] MEDS: TOPIRAMATE 25 MG TABLET PO SCH ×2 (09:39→23:30)
[2018-02-13] MEDS: ZANTAC 150 MG PO SCH (09:43)
[2018-02-13 12:00] VITALS: BP 92/63
--- NOTE | 2018-02-13 12:00 | NUR ---
CIWA 9 Pt has diaphoresis, anxiety and restlessness. Pt complains of runny nose and fatigue. Pt encouraged to drink more fluids to help with detox process. Will continue to monitor, support and encourage according to plan of care.
[2018-02-13] MEDS ORDERED: TRAZ-213 PO (14:44)
[2018-02-13] MEDS ORDERED: CLON0.1T14 PO (14:44)
[2018-02-13 16:00] VITALS: BP 98/61
--- NOTE | 2018-02-13 16:00 | NUR ---
CIWA 8 Pt has diaphoresis, anxiety and restlessness. Pt complains of chills and fatigue. Pt encouraged to drink more fluids to help with detox process. Will continue to monitor, support and encourage according to plan of care.
--- NOTE | 2018-02-13 19:06 | NUR ---
End of Shift Report given to shift boss nurse, Plan of care followed, Vital signs monitored closely Q4H. Withdrawals symptoms were closely monitored, medications given as schedule. Initial CIWA 10. Pt encouraged adequate PO fluid intake as tolerated. Pt presented with sweats restless legs, anxiety and fatigue during the day. Pt received all of her scheduled taper medications. Pt did not receive any PRN medications during the day. Last CIWA was a 8. Pt completed her 5 day valium taper and is to be discharged home tomorrow. All the discharge paperwork completed and ready to print in the AM. Pt ate all of her meals. Pt attended all the groups and activities to learn new coping skills to prevent relapse. Pt denies any SI/HI. All safety measures in place, bed in lowest locked position, call light within reach. All needs met and attended.
--- NOTE | 2018-02-13 19:45 | NUR ---
Start of Shift Note Received a 43 y/o female, admitted for medically supervised withdrawal from ETOH. Px completed a 5 day Valium taper. Px tolerated it. She is discharging tomorrow, 02/14/2018. Last reported CIWA 8 by AM shift nurse. During the rounds at 1999, px is awake on bed in fowlers position. Px appears anxious. She is disheveled. Some drinks and snack noted on top of the bed side table. Px stated that her anxiety is 3/10. Mild bilateral hand tremors noted. Bed on the lowest position, side rails up 2x and call light within reach. Well continue to monitor.
[2018-02-13 20:00] VITALS: BP 148/97
--- NOTE | 2018-02-13 20:00 | NUR ---
CIWA 9 Px appears anxious. Px stated that her anxiety is still 2/10. She has mild bilateral hand tremors. will continue to monitor
[2018-02-13] MEDS ORDERED: BISACODYL 5 MG TABLET.DR PO PRN (21:00)
[2018-02-13] MEDS: TRAZODONE 50 MG TABLET PO PRN (23:30)
[2018-02-13] MEDS: CLONIDINE HCL 0.1 MG TABLET PO PRN (23:30)
--- NOTE | 2018-02-13 23:30 | NUR ---
PRN Clonidine and Trazodone Px received Trazodone 50 mg PO for insomnia and Clonidine 0.1mg PO for anxiety. To reassess after an hour
[2018-02-14] VITALS: BP 133/86
--- NOTE | 2018-02-14 | NUR ---
CIWA 11 Px appears anxious. Px stated that her anxiety is 5/10. She has mild bilateral hand tremors. She received Clonidine 0.1 mg PO 30 mins ago. will continue to monitor
--- NOTE | 2018-02-14 00:30 | NUR ---
Reassessment of anxiety and insomnia Px is about to sleep at this moment. She stated that her anxiety improved. will continue to monitor
[2018-02-14 04:00] VITALS: BP 129/80
--- NOTE | 2018-02-14 04:00 | NUR ---
CIWA deferred CIWA deferred due to the px is asleep, to assess if the px is awake per doctor's order. will continue to monitor
[2018-02-14] MEDS: PANTOPRAZOLE SODIUM 40 MG TABLET.DR PO SCH (07:05)
[2018-02-14] MEDS: LEVOTHYROXINE SODIUM 25 MCG TABLET PO SCH (07:05)
--- NOTE | 2018-02-14 07:05 | NUR ---
End of Shift Note Px is to be D/C today, 02/14/2018. During the shift at 2330, px received Trazodone 50 mg PO for insomnia and Clonidine 0.1 mg PO for anxiety. They were effective. Oral intake of 2 L, voided 5x, No BM. Px slept for total of 5 hours. Last CIWA 11. At 0630, px is asleep on bed in fowlers position. Bed on the lowest position, side rails up 2x and call light within reach. Well continue to monitor. Px endorsed to AM shift nurse.
[2018-02-14] MEDS: IBUPROFEN 600 MG TABLET PO PRN (07:37)
--- NOTE | 2018-02-14 07:37 | NUR ---
Start of Shift Notes/Motrin 600 mg PO given: Received patient in her room. Alert and oriented x 4. Verbally responsive. She appears disheveled. Hair uncombed. Worried facial expression. Complains of 6/10 menstrual cramping. She appears anxious and nervous regarding the discharge. Redirection provided. Patient is a 43 year old female admitted for ETOH withdrawal who completed her 5-day Valium taper. Per night report, patient was given PRN Clonidine and Trazodone. Slept for a total of 5 hours. Last CIWA 11. Safety precautions in place. Educated patient on the discharge process. All needs met and attended. PRN Motrin 600 mg PO and heat packs provided. Will monitor for effectiveness.
[2018-02-14 08:00] VITALS: BP 92/59
--- NOTE | 2018-02-14 08:37 | NUR ---
Re-assessment: Motrin patient verbalizes relief from mesntrual cramps. She describes her pain a 3 out of 10 at this time. PRN Motrin effective.
[2018-02-14] MEDS: FOLIC ACID 1 MG TABLET PO SCH (08:40)
[2018-02-14] MEDS: MULTIVITAMINS,THERAPEUTIC TABLET PO SCH (08:40)
[2018-02-14] MEDS: DOCUSATE SODIUM 100 MG CAPSULE PO SCH (08:40)
[2018-02-14] MEDS: TOPIRAMATE 25 MG TABLET PO SCH (08:40)
[2018-02-14] MEDS: FLUOXETINE HCL 20 MG CAPSULE PO SCH (08:41)
[2018-02-14] MEDS: ZANTAC 150 MG PO SCH (08:41)
[2018-02-14] MEDS: GABAPENTIN 300 MG CAPSULE PO SCH (08:41)
[2018-02-14] MEDS: THIAMINE HCL 100 MG TABLET PO SCH (08:41)
--- NOTE | 2018-02-14 10:02 | NUR ---
Discharge: Patient education provided regarding her discharge instructions. She verbalized good understanding of all teachings. VS stable CIWA 8. Denies S/I or H/I noted. No AV hallucinations noted. All clothing, medications and valuables were returned to the patient. All necessary dc paperwork signed. [employer]LECT[employer] cabinet checked. Cassette checked. Patient was picked up via private car at this time to be transported home.
== END 2018-02-14 10:02 | disposition home or self-care (01) | DRG 895 ==
LOC: SRC 18:43
PROVIDERS: ADMIT Family Medicine Addiction Medicine; ATTEND Family Medicine Addiction Medicine
PROC: HZ2ZZZZ Detoxification Services for Substance Abuse Treatment (ICD-10-PCS; principal; 2018-02-07)
PROC: HZ31ZZZ Individual Counseling for Substance Abuse Treatment, Behavioral (ICD-10-PCS; 2018-02-08)
PROC: HZ41ZZZ Group Counseling for Substance Abuse Treatment, Behavioral (ICD-10-PCS; 2018-02-08)
DX: F10.230 Alcohol dependence with withdrawal, uncomplicated (principal); F31.30 Bipolar disorder, current episode depressed, mild or moderate severity, unspecified; F10.220 Alcohol dependence with intoxication, uncomplicated; Y90.9 Presence of alcohol in blood, level not specified; K21.9 Gastro-esophageal reflux disease without esophagitis; E03.9 Hypothyroidism, unspecified; G47.00 Insomnia, unspecified; F43.10 Post-traumatic stress disorder, unspecified; Z79.899 Other long term (current) drug therapy
CPT/HCPCS: 36415; 70030-TC; 80307; 83690; 83735; 84443; 84703; 85025; 86592; 86705; 86803; 87340; 87806; G0480; Q0162; Q0163